=== PATIENT | male | born 2000 | race Hispanic/Latino ===

== ENCOUNTER 2022-09-17 13:30 | Day surgery (SDC) | payer OTHER, SELFPAY ==
[2022-09-15 08:25] VITALS: BMI 29.8
[2022-09-17] MEDS: LACTATED RINGERS 1,000 ML 42 ML IV (13:55)
[2022-09-17 13:59] VITALS: BP 130/67; PULSE 56; RESP 18; TEMP 36.7; O2SAT 97; BMI 29.7
[2022-09-17] MEDS: OXYMETAZOLINE NASAL SPRAY 15 ML 2 SPRAYS NASAL ×2 (14:14→16:29)
--- NOTE | 2022-09-17 15:54 | PM.PREOP ---
Pre-operative Note Interval Note History & Physical reviewed/Exam performed by Physician: Yes Changes to H&P: No
--- NOTE | 2022-09-17 15:54 | PM.HP.1 ---
History of Present Illness History of Present Illness Date Patient Seen: 09/17/22 Time Patient Seen: 15:54 Chief complaint: SDC Narrative: 22-year-old male last seen in clinic 08/18/2022 presents For septoplasty and bilateral inferior turbinate reduction. Chronic nasal obstruction, no interval health changes since last visit, wishes to proceed. Patient History Medical History Chronic rhinitis Ear pain ETD (eustachian tube dysfunction) Nasal obstruction Respiratory obstruction Sleep disturbance Sore throat Tinnitus Surgical History History of ear, nose, and throat (ENT) surgery (2019) Family & Social History Social History: household members spouse Tobacco & Substance use: Smoking Status Never smoker alcohol intake never Substance Use Type does not use Meds Home Medications and Allergies Allergies Allergy/AdvReac Type Severity Reaction Status Date / Time No Known Drug Allergies Allergy Verified 09/17/22 13:57 Review of Systems Review of Systems Narrative: Negative except as listed in the HPI Exam Vital Signs (past 8 hours): - 09/17/22 13:59 Temperature 98.0 F Pulse Rate 56 L Respiratory Rate 18 Blood Pressure 130/67 Pulse Oximetry 97 Oxygen Delivery Method Room Air Oxygen Delivery Method Room Air Narrative Exam Narrative: Well-developed well-nourished, heart regular rate and rhythm without murmur, lungs clear to auscultation bilaterally Assessment & Plan Assessment & Plan narrative: Assessment: Nasal airway obstruction, septal deviation, inferior turbinate hypertrophy Plan: Following discussion of the material risks benefits complications and alternatives, the patient elected to proceed. Time Spent With Patient Critical Care time: I spent a total of [] minutes of critical care time on this patient's care today; this time is exclusive of procedural time.
--- NOTE | 2022-09-17 15:56 | PM.OP.1 ---
Operative Date/Time/Diagnoses Date of procedure: 09/17/22 Time of procedure: 17:08 Pre-op diagnosis: Nasal airway obstruction, septal deviation, inferior turbinate hypertrophy Post-op diagnosis: same Procedure & Clinicians Procedure: 1. Septoplasty 2. Bilateral inferior turbinate reduction via intramural cautery Same procedure as scheduled: Yes Indications: 22 Year old with the above diagnoses incompletely managed with medical therapy presents for the above procedure. Following discussion of the material risks benefits complications and alternatives, the patient elected to proceed. Surgeon: Ej Ramires Click Yes if Unassisted: Yes Anesthesia Type: General and Local Operative Notes Findings: 2+ right septal deviation, including a thick bony posterior spur. No flap lacerations. Estimated Blood Loss (mL): 40 Procedure in detail: Following identification and confirmation of consent as well as preoperative Afrin nasal spray, the patient was brought to the operating room suite and placed in the supine position. General endotracheal anesthesia was administered. I infiltrated the septum widely bilaterally with 1% lidocaine 1 100,000 epinephrine followed by temporary packing with cotton with Afrin and 4% lidocaine. Following sterile prep and drape, the packing was removed and I performed a right jameson-transfixion incision, elevated the right mucoperichondrial and mucoperiosteal flap. I disarticulated near the bony/cartilaginous junction and elevated the left mucoperiosteal flap. Deviated portions of the perpendicular plate of the ethmoid and vomer were resected. The residual quadrilateral cartilage was further straightened by trimming it inferiorly as well as reducing the maxillary crest. A 2 mm strip of cartilage paralleling the residual 1 cm dorsal and caudal strut was resected to further straighten the quadrilateral cartilage. The hemitransfixion incision was closed with interrupted 5 0 chromic followed by a running 4 0 plain gut mattress suture to reapproximate the septal flaps. At case completion, 20/1000th of an inch silastic splints were placed bilaterally, sutured anteriorly with a single 4 0 nylon. The head of each inferior turbinate had been previously infiltrated with additional local anesthetic and a 25 gauge spinal needle was used to impale the length of the turbinate, with cautery on a setting of 15 activated on slow withdrawal over 2 passes. The turbinates were then outfractured. The procedure completed, sponge and needle counts were correct and the patient was extubated in the operating room and taken to recovery room in stable condition without known complication. Postoperative care: Nasal saline every hour while awake, Vaseline or Polysporin to the nostrils at all times, begin irrigations t.i.d. beginning pod 1. Humidifier at the bedside blowing on the face. Tylenol alternating with Advil for pain control, oxycodone if necessary for breakthrough pain. Complications: none Post-operative Condition: stable Disposition: same day surgery Plan for aftercare: Nasal saline every hour while awake, begin irrigations t.i.d. tomorrow if desired. Polysporin to the nostrils at all times, Tylenol alternating with Advil for pain control, oxycodone for breakthrough pain. Elevate head of bed, no nose blowing, no straining for 2 weeks. Ice directly under the nose on the upper lip has tolerated 24-48 hours at a minimum. Follow-up in 1 week for nasal splint removal.
--- NOTE | 2022-09-17 16:24 | SUR.OPER ---
Supine on padded OR bed, head on pillow, arms padded and tucked at sides, legs uncrossed, safety belt at thigh, tape over blanket over lower legs .
[2022-09-17] MEDS: LIDOCAINE 4% SOLN 50 ML 20 ML TOP (16:30)
[2022-09-17] MEDS: BACITRACIN OINT 0.9 GM PCKT 1 APPLIC TOP (16:31)
[2022-09-17] MEDS: LIDOCAINE 1% W/EPI 20 ML INJ (16:31)
[2022-09-17 17:16] VITALS: BP 124/58; PULSE 86; RESP 20; TEMP 36.4; O2SAT 91
[2022-09-17 17:20] VITALS: BP 110/57; PULSE 86; RESP 21; TEMP 36.4; O2SAT 91
[2022-09-17 17:24] VITALS: BP 115/61; PULSE 85; RESP 20; TEMP 36.4; O2SAT 91
[2022-09-17 17:32] VITALS: BP 121/63; PULSE 90; RESP 16; TEMP 37.1; O2SAT 92
[2022-09-17] MEDS: ONDANSETRON 4 MG/2 ML INJ IV (17:44)
[2022-09-17 17:45] VITALS: BP 126/79; PULSE 89; RESP 18; TEMP 36.6; O2SAT 99
== END 2022-09-17 18:06 | disposition home or self-care (01) ==
PROVIDERS: Referring Provider Otolaryngology; Visit Provider Otolaryngology
PROC: (CPT 30520; principal; 2022-09-17 15:15)
PROC: (CPT 30520; 2022-09-17 15:15)
DX: J34.89 Other specified disorders of nose and nasal sinuses (principal); J34.2 Deviated nasal septum; J34.3 Hypertrophy of nasal turbinates; J31.0 Chronic rhinitis; R04.0 Epistaxis; H69.83 Other specified disorders of Eustachian tube, bilateral; J98.8 Other specified respiratory disorders
CPT/HCPCS: 30520; 30802; J1100; J2405; J2704; J3010

== ENCOUNTER 2024-06-22 10:35 | Day surgery (SDC) | payer OTHER, SELFPAY ==
[2024-06-20 14:45] VITALS: BMI 28.3
[2024-06-22] MEDS: ACETAMINOPHEN 325 MG TABLET 975 MG PO (12:02)
[2024-06-22] MEDS: LACTATED RINGERS 1,000 ML 42 ML IV (12:03)
[2024-06-22] MEDS: OXYMETAZOLINE NASAL SPRAY 30 ML 2 SPRAYS NASAL ×2 (12:04→13:16)
[2024-06-22 12:09] VITALS: BP 125/62; PULSE 63; RESP 18; TEMP 36.2; O2SAT 98; BMI 27.8
--- NOTE | 2024-06-22 12:35 | PM.PREOP ---
Pre-operative Note Interval Note History & Physical reviewed/Exam performed by Physician: Yes Changes to H&P: No
--- NOTE | 2024-06-22 12:36 | P.HP_ITS ---
History of Present Illness History of Present Illness Date Patient Seen: 06/22/24 Time Patient Seen: 12:36 Chief complaint: SDC Narrative: 23-year-old male last seen in clinic 05/17/2024 presents for scheduled bilateral inferior turbinate reduction via intramural cautery as well as left middle turbinate reduction. No interval health changes, wishes to proceed. Sleep study not yet performed. [facility] Medical History Sleep apnea Hearing loss Nasal turbinate hypertrophy Non-seasonal allergic rhinitis Ear pain Sore throat Tinnitus Sleep disturbance Nasal obstruction Respiratory obstruction ETD (eustachian tube dysfunction) Chronic rhinitis Surgical History Hx of nasal septoplasty (09/17/22) History of ear, nose, and throat (ENT) surgery (2018) Social History household members: none Smoking Status: Never smoker alcohol intake: current Meds Home Medications and Allergies Home Medications Medication Instructions Recorded Confirmed Type No Known Home Medications 06/22/24 06/22/24 History Allergies Allergy/AdvReac Type Severity Reaction Status Date / Time No Known Drug Allergies Allergy Verified 06/22/24 11:53 Review of Systems Review of Systems Narrative: Negative except as listed in the HPI Exam Vital Signs (past 8 hours): - 06/22/24 12:09 Temperature 97.1 F L Pulse Rate 63 Respiratory Rate 18 Blood Pressure 125/62 Pulse Oximetry 98 Oxygen Delivery Method Room Air Oxygen Delivery Method Room Air Narrative Exam Narrative: Well-developed well-nourished, heart regular rate and rhythm without murmur, lungs clear to auscultation bilaterally Assessment & Plan Assessment & Plan narrative: Assessment: Nasal airway obstruction, inferior turbinate hypertrophy, middle turbinate hypertrophy, allergic rhinitis, chronic rhinitis, history of septoplasty, upper airway obstruction. Plan: Following discussion of the material risks benefits complications and alternatives, the patient elected to proceed. Time-Based Coding :: [TOTAL MINUTES] spent with patient and on the chart (including review of chart, obtaining history, exam, reviewing outside data, placing orders, documenting exam and treatment plan, and counseling patient) on [DATE].
--- NOTE | 2024-06-22 12:37 | SUR.OPER ---
Supine on padded OR bed, head on pillow, arms padded and tucked at sides, legs uncrossed, safety belt at thigh, tape over blanket over lower legs .
--- NOTE | 2024-06-22 12:39 | PM.OP.1 ---
Operative Date/Time/Diagnoses Date of procedure: 06/22/24 Pre-op diagnosis: Nasal airway obstruction, inferior turbinate hypertrophy, middle turbinate hypertrophy, allergic rhinitis, chronic rhinitis, history of septoplasty, upper airway obstruction Post-op diagnosis: same Procedure & Clinicians Procedure: 1. Bilateral inferior turbinate reduction via submucous resection 2. Left middle turbinate reduction via external cautery Same procedure as scheduled: Yes Indications: 23 Year old with the above diagnoses incompletely managed with medical therapy presents for the above procedure. Following discussion of the material risks benefits complications and alternatives, the patient elected to proceed. Surgeon: Ej Ramires Anesthesia Type: General and Local Operative Notes Findings: Oluo-[id number]-right inferior turbinate hypertrophy, moderate middle turbinate hypertrophy. Estimated Blood Loss (mL): 1 Procedure in detail: Following identification and confirmation of consent as well as preoperative Afrin nasal spray, the patient was brought to the operating room suite and placed in the supine position. General laryngeal mask anesthesia was administered. I infiltrated the turbinates widely bilaterally with 1% lidocaine 1 100,000 epinephrine followed by temporary packing with cotton with Afrin and 4% lidocaine. Following sterile prep and drape, the packing was removed and a 15 blade was used to incise a vertical incision to the anterior portion of the head of the right inferior turbinate. I submucosally dissected a portion of the inferior turbinate bone and resected it, along with some submucosal tissue. A 25 gauge spinal needle was used to impale the length of the turbinate, with cautery on a setting of 15 activated on slow withdrawal over 2 passes. The turbinate was then outfractured. This process was repeated on the opposite side. Under endoscopic visualization, the nasal cavity was further examined and focal areas of mucosal edema of the medial surface of the turbinates were cauterized externally with suction cautery on a setting of 15, none contiguous. A Merocel sponge was placed bilaterally over the head of each turbinate and soaked with Afrin. The procedure completed, sponge and needle counts were correct and the patient was extubated in the operating room and taken to recovery room in stable condition without known complication. Complications: none Post-operative Condition: stable Disposition: same day surgery Plan for aftercare: Nasal saline every hour while awake, begin irrigations t.i.d. tomorrow if desired. Polysporin to the nostrils at all times for 3 full weeks, Tylenol alternating with Advil for pain control, oxycodone for breakthrough pain. Elevate head of bed, no nose blowing, no straining for 2 weeks. May return to work at any point but no heavy lifting for 2 full weeks. Remove nasal sponges tonight before bed after soaking with Afrin 30 minutes prior, then Afrin with any bleeding.
--- NOTE | 2024-06-22 13:02 | SUR.OPER ---
Supine on padded OR bed, head on GELRING, arms padded and tucked at sides, legs uncrossed, safety belt at thig.
[2024-06-22] MEDS: LIDOCAINE 1% W/EPI 20ML 20 ML INJ (13:12)
[2024-06-22] MEDS: LIDOCAINE 4% SOLN 50 ML 20 ML TOP (13:15)
[2024-06-22 13:43] VITALS: BP 120/80; PULSE 75; RESP 21; TEMP 36.2; O2SAT 97
[2024-06-22 13:48] VITALS: BP 119/85; PULSE 74; RESP 18; TEMP 36.1; O2SAT 100
[2024-06-22 13:54] VITALS: BP 126/86; PULSE 83; RESP 13; TEMP 36.2; O2SAT 98
[2024-06-22 13:59] VITALS: BP 130/90; PULSE 79; RESP 12; TEMP 36.2; O2SAT 99
== END 2024-06-22 15:10 | disposition home or self-care (01) ==
PROVIDERS: Referring Provider Otolaryngology; Visit Provider Otolaryngology
PROC: (CPT 31231; principal; 2024-06-22 12:30)
DX: J34.89 Other specified disorders of nose and nasal sinuses (principal); J34.3 Hypertrophy of nasal turbinates
CPT/HCPCS: 30140; 30999; J0330; J1100; J2704; J3010